=== PATIENT | male | born 1995 | race Caucasian/White ===

== ENCOUNTER → 2020-03-09 | Outpatient (REF) | payer OTHER ==
[2020-03-09 18:11] LABS: BASO # 0.1 10^3/uL (0.0-0.2); BASO % 1.1 % (0.0-1.0); EOS # 0.1 10^3/uL (0.0-0.5); EOS % 1.2 % (0.0-3.0); HEMATOCRIT 49.1 % (42.0-52.0); HEMOGLOBIN 16.6 g/dl (13.5-17.5); LYMPH % 39.3 % (24.0-44.0); MEAN CORPUSCULAR HEMOGLOBIN 30.2 pg (27.0-33.0); MEAN CORPUSCULAR HGB CONC 33.8 g/dl (32.0-36.5); MEAN CORPUSCULAR VOLUME 89.3 fl (80.0-96.0); MONO # 0.8 10^3/uL (0.0-0.8); MONO % 9.9 % (0.0-5.0); NEUTROPHILS # 3.7 10^3/uL (1.5-8.5); NEUTROPHILS % 48.4 % (36.0-66.0); PLATELET COUNT, AUTOMATED 313 10^3/uL (150-450); WHITE BLOOD COUNT 7.6 10^3/uL (4.0-10.0)
[2020-03-09 18:33] LABS: ALBUMIN 4.5 GM/DL (3.2-5.2); ALT/SGPT 32 U/L (12-78); BILIRUBIN,TOTAL 0.5 MG/DL (0.2-1.0); BLOOD UREA NITROGEN 20 MG/DL (7-18); CARBON DIOXIDE LEVEL 28 MEQ/L (21-32); CHLORIDE LEVEL 104 MEQ/L (98-107); CREATININE FOR GFR 0.98 MG/DL (0.70-1.30); GLOMERULAR FILTRATION RATE > 60.0 (>60); GLUCOSE, FASTING 85 MG/DL (70-100); SODIUM LEVEL 141 MEQ/L (136-145); URIC ACID 9.8 MG/DL (3.5-7.2)
== END ==
LOC: M SFHCADAM 15:48
PROVIDERS: ATTEND Physician Assistant
DX: M1A.0720 Idiopathic chronic gout, left ankle and foot, without tophus (tophi) (principal)

== ENCOUNTER → 2020-06-28 | Outpatient (REF) | payer OTHER | LOC: M LAB REF 15:55 | PROVIDERS: ATTEND Surgery | DX: L72.0 Epidermal cyst (principal) ==

== ENCOUNTER → 2020-06-28 | Outpatient (REF) | payer OTHER ==
[2020-06-28 12:59] LABS: HEMATOCRIT 48.6 % (42.0-52.0); HEMOGLOBIN 16.2 g/dl (13.5-17.5); MEAN CORPUSCULAR HEMOGLOBIN 30.6 pg (27.0-33.0); MEAN CORPUSCULAR HGB CONC 33.3 g/dl (32.0-36.5); MEAN CORPUSCULAR VOLUME 91.9 fl (80.0-96.0); PLATELET COUNT, AUTOMATED 326 10^3/uL (150-450); RED BLOOD COUNT 5.29 10^6/uL (4.30-6.10)
[2020-06-28 13:32] LABS: ALT/SGPT 37 U/L (12-78); BILIRUBIN,TOTAL 0.6 MG/DL (0.2-1.0); BLOOD UREA NITROGEN 11 MG/DL (7-18); CALCIUM LEVEL 9.2 MG/DL (8.5-10.1); CARBON DIOXIDE LEVEL 31 MEQ/L (21-32); CHLORIDE LEVEL 106 MEQ/L (98-107); FREE T4 0.88 NG/DL (0.76-1.46); GLOMERULAR FILTRATION RATE > 60.0 (>60); GLUCOSE, FASTING 89 MG/DL (70-100); POTASSIUM SERUM 4.6 MEQ/L (3.5-5.1); SODIUM LEVEL 140 MEQ/L (136-145); TOTAL PROTEIN 7.2 GM/DL (6.4-8.2); URIC ACID 9.3 MG/DL (3.5-7.2)
[2020-06-28 13:41] LABS: VITAMIN B12 LEVEL 309 PG/ML (247-911)
[2020-06-28 13:42] LABS: TOTAL 25(OH) VITAMIN D 39.5 NG/ML (30.0-100.0)
== END ==
LOC: M SFHCADAM 08:01
PROVIDERS: ATTEND Family Medicine
DX: R53.83 Other fatigue (principal); M1A.0720 Idiopathic chronic gout, left ankle and foot, without tophus (tophi)

== ENCOUNTER 2021-12-10 04:42 | Emergency (ER) | payer OTHER ==
[~2021-12-10] VITALS: Ht 172.7 cm; Wt 63.6 kg
[2021-12-10] MEDS ORDERED: IBUP-1022 PO (09:01)
[2021-12-10] MEDS ORDERED: TRAM50TA2 PO (09:01)
[2021-12-10 09:16] VITALS: BP 127/80
== END 2021-12-10 09:19 | disposition home or self-care (01) ==
LOC: M ED 04:42
DX: S93.602A Unspecified sprain of left foot, initial encounter (principal); W17.89XA Other fall from one level to another, initial encounter; Z88.8 Allergy status to other drugs, medicaments and biological substances; Z79.899 Other long term (current) drug therapy

== ENCOUNTER 2024-12-31 19:23 | Emergency (ER) | payer OTHER ==
[~2024-12-31] VITALS: Ht 175.3 cm; Wt 70.0 kg
[2024-12-31] VITALS (11 sets, daily range): BP systolic 105–120; BP diastolic 52–62; TEMP 99.7–100.4; O2SAT 99–100
[~2024-12-31 19:23] MED LIST: IBUP600T42 PO; TRAM50TA2 PO
[2024-12-31] MEDS: NS (Normal Saline) 0.9% 1,000 ML IV ONE (20:05)
[2024-12-31] MEDS ORDERED: ISOVUE-370 76% 100 ML VIAL As Ordered ONE (20:07)
[2024-12-31 20:12] LABS: BASO # 0.1 10^3/uL (0.0-0.2); BASO % 0.3 % (0.0-1.0); EOS # 0.0 10^3/uL (0.0-0.5); EOS % 0.0 % (0.0-3.0); LYMPH # 2.5 10^3/uL (1.5-5.0); LYMPH % 11.1 % (24.0-44.0); MONO # 1.5 10^3/uL (0.0-0.8); MONO % 7.0 % (2.0-8.0); NEUTROPHILS # 17.5 10^3/uL (1.5-8.5); NEUTROPHILS % 79.1 % (36.0-66.0); PLATELET COUNT, AUTOMATED 265 10^3/uL (150-450)
[2024-12-31 20:36] LABS: CK-MB VALUE MASS < 1.0 NG/ML (<3.6)
[2024-12-31 20:38] LABS: ALT/SGPT 22 U/L (7.0-40); AST/SGOT 12 U/L (<34); CPK CREATINE PHOSPHOKINASE 19 U/L (46-171)
[2024-12-31 20:45] LABS: INR 1.08
[2024-12-31 21:33] LABS: CALCIUM LEVEL 7.5 MG/DL (8.5-10.1); CARBON DIOXIDE LEVEL 24 MMOL/L (20-31); CHLORIDE LEVEL 104 MMOL/L (98-107); CREATININE FOR GFR 0.84 MG/DL (0.70-1.30); GLOMERULAR FILTRATION RATE > 90.0 (>60); POTASSIUM SERUM 3.7 MMOL/L (3.5-5.1); SODIUM LEVEL 137 MMOL/L (136-145)
[2024-12-31] MEDS: PANTOPRAZOLE 40MG VIAL IV ONE (22:25)
[2024-12-31] MEDS: ACETAMINOPHEN *IV* 1,000 MG in IV 1 EA IV ONE (22:42)
[2025-01-01] VITALS (14 sets, daily range): BP systolic 99–131; BP diastolic 55–59; TEMP 99.1–99.7; O2SAT 98–100
[2025-01-01] MEDS: MAG SULF 1GM/100ML (MAG RUN) 1 GM in IV 1 EA IV ONE (02:28)
[2025-01-01] MEDS: NS (Normal Saline) 0.9% 1,000 ML IV ONE (02:28)
[2025-01-01] MEDS: CALCIUM GLUCONATE 1,000 MG in DEXTROSE 5% (D5W) MINI-BAG PLU 100 ML IV ONE (02:28)
[2025-01-01 02:45] LABS: PLATELET COUNT, AUTOMATED 188 10^3/uL (150-450)
[2025-01-01] MEDS ORDERED: HOME MED LIST COMPLETE! XX SCH (05:15)
== END 2025-01-01 08:22 | disposition short-term general hospital (02) ==
LOC: M ED 19:23
DX: K92.2 Gastrointestinal hemorrhage, unspecified (principal); D64.9 Anemia, unspecified; K56.41 Fecal impaction; Z88.1 Allergy status to other antibiotic agents
CPT/HCPCS: 36430; 71045; 74174; 80047; 80048; 80076; 82330; 82550; 82553; 83605; 83690; 84145; 84484; 85025; 85027; 85610; 86850; 86900; 86901; 86920; 93005; 93041; 94760; 96361; 96365; 96366; 96368; 96375; 99285; J0131; J0612; J2470; J3475; P9016; Q9967